=== PATIENT | male | born 1945 | race Caucasian/White ===

== ENCOUNTER 2020-07-28 15:52 | Emergency (ER) | payer OTHER ==
[~2020-07-28] VITALS: Ht 177.8 cm; Wt 79.8 kg
[2020-07-28 16:57] LABS: BASOPHILS ABSOLUTE AUTO 0.03 K/mm3 (0.00-0.23); BASOPHILS PERCENT AUTO 1 % (0-2); EOSINOPHILS PERCENT AUTO 4 % (0-6); Hematocrit 44.7 % (37.0-53.0); Hemoglobin 15.8 g/dL (13.5-17.5); IMMATURE GRAN ABSOLUTE AUTO 0.03 K/mm3 (0.00-0.10); IMMATURE GRAN PERCENT AUTO 1 % (0-1); LYMPHOCYTES ABSOLUTE AUTO 1.04 K/mm3 (0.84-5.20); LYMPHOCYTES PERCENT AUTO 19 % (21-46); MONOCYTES ABSOLUTE AUTO 0.48 K/mm3 (0.16-1.47); MONOCYTES PERCENT AUTO 9 % (4-13); Mean Corpuscular HGB Conc 35.3 g/dL (31.5-36.5); Mean Corpuscular Volume 91 fL (80-100); Mean Platelet Volume 10.3 fL (9.1-12.4); NEUTROPHILS ABSOLUTE AUTO 3.62 K/mm3 (1.96-9.15); NEUTROPHILS PERCENT AUTO 67 % (41-73); Platelet Count 146 K/mm3 (150-400); RDW Coefficient Variation 12.9 % (11.7-14.2); RDW Standard Deviation 41.9 fL (35.1-46.3); Red Blood Cell Count 4.94 M/mm3 (4.30-5.90)
[2020-07-28 17:18] LABS: Alanine Aminotransfer (ALT/SGP 32 U/L (12-78); Albumin, Blood 3.6 g/dL (3.4-5.0); Albumin/Globulin Ratio 1.4 (0.8-1.8); Alk Phos 105 U/L (50-136); Anion Gap 2 mmol/L (6-16); Aspartate Aminotrans (AST/SGOT 24 U/L (12-37); Bilirubin, Total 1.2 mg/dL (0.1-1.0); Blood Urea Nitrogen 16 mg/dL (8-24); Bun/Creatinine Ratio 15.5 (12.0-20.0); CO2, Blood 34 mmol/L (21-32); Calcium, Blood 8.6 mg/dL (8.5-10.1); Chloride, Blood 105 mmol/L (98-108); Creatinine, Blood 1.03 mg/dL (0.60-1.20); Globulin, Blood 2.6 g/dL (2.2-4.0); Glomerular Filtration Rate >60 (60-); Glucose, Blood 86 mg/dL (70-99); Potassium, Blood 3.7 mmol/L (3.5-5.5); Sodium, Blood 141 mmol/L (136-145); Total Protein, Blood 6.2 g/dL (6.4-8.2)
[2020-07-28] MEDS ORDERED: LATA.005SO LEFTEYE (17:19)
[2020-07-28] MEDS ORDERED: CHLO25B PO (17:19)
[2020-07-28] MEDS ORDERED: ATOR20 PO (17:19)
[2020-07-28] MEDS ORDERED: TIMO.25OPS LEFTEYE (17:20)
[2020-07-28] MEDS ORDERED: Flagyl500 MG PO (18:17)
[2020-07-28] MEDS ORDERED: Cipro500 MG PO (18:17)
== END 2020-07-28 18:39 | disposition home or self-care (01) ==
LOC: ER 15:52
PROVIDERS: Physician Assistant
DX: K63.1 Perforation of intestine (nontraumatic) (principal); I10 Essential (primary) hypertension; K21.9 Gastro-esophageal reflux disease without esophagitis; E78.00 Pure hypercholesterolemia, unspecified
CPT/HCPCS: 36415; 80053; 83605; 85025; 87040; 96365; 99284-25; J2543

== ENCOUNTER 2020-08-31 12:59 | Day surgery (SDC) | payer OTHER ==
[~2020-08-31] VITALS: Ht 177.8 cm; Wt 79.3 kg
[~2020-08-31 12:59] MED LIST: ATOR20 PO; CHLO25B PO; Cipro500 MG PO; Flagyl500 MG PO; LATA.005SO LEFTEYE; TIMO.25OPS LEFTEYE
[2020-08-31] MEDS ORDERED: ASPIR 8181 M1 (13:23)
--- NOTE | 2020-08-31 13:42 | NUR ---
08/31/20 1342 Alyx Desai 1 TRY RIGHT UPPER ARM MOVED 2 TRY RIGHT WRIST NO FLASH
== END 2020-08-31 15:44 | disposition home or self-care (01) ==
LOC: ORSCSDS 12:59
PROVIDERS: Surgery
PROC: 0DB78ZX Excision of Stomach, Pylorus, Via Natural or Artificial Opening Endoscopic, Diagnostic (ICD-10-PCS; principal; 2020-08-31 14:30)
PROC: 0DJD8ZZ Inspection of Lower Intestinal Tract, Via Natural or Artificial Opening Endoscopic (ICD-10-PCS; principal; 2020-08-31 14:30)
DX: R10.12 Left upper quadrant pain (principal); K21.9 Gastro-esophageal reflux disease without esophagitis; R13.14 Dysphagia, pharyngoesophageal phase; K29.70 Gastritis, unspecified, without bleeding; Z86.010 Personal history of colon polyps; Z12.11 Encounter for screening for malignant neoplasm of colon; E78.00 Pure hypercholesterolemia, unspecified; I10 Essential (primary) hypertension; R93.89 Abnormal findings on diagnostic imaging of other specified body structures; K44.9 Diaphragmatic hernia without obstruction or gangrene; Z79.899 Other long term (current) drug therapy; Z86.73 Personal history of transient ischemic attack (TIA), and cerebral infarction without residual deficits
CPT/HCPCS: 43239; G0105; 88305; 88342; J2704; J7120

== ENCOUNTER 2021-08-16 16:21 | Emergency (ER) | payer OTHER ==
[~2021-08-16] VITALS: Ht 177.8 cm; Wt 88.5 kg
[~2021-08-16 16:21] MED LIST changes: +ASPIR 8181 M1
== END 2021-08-16 18:44 | disposition home or self-care (01) ==
LOC: ER 16:21
DX: S09.90XA Unspecified injury of head, initial encounter (principal); S16.1XXA Strain of muscle, fascia and tendon at neck level, initial encounter; V53.5XXA Driver of pick-up truck or van injured in collision with car, pick-up truck or van in traffic accident, initial encounter; Z79.899 Other long term (current) drug therapy; Z79.82 Long term (current) use of aspirin; E78.00 Pure hypercholesterolemia, unspecified; K21.9 Gastro-esophageal reflux disease without esophagitis; I10 Essential (primary) hypertension
CPT/HCPCS: 70450; 72125; 99284-25

== ENCOUNTER 2022-09-13 11:24 | Emergency (ER) | payer OTHER ==
[~2022-09-13] VITALS: Ht 177.8 cm; Wt 89.4 kg
[2022-09-13 11:40] VITALS: BP 166/91
== END 2022-09-13 13:32 | disposition home or self-care (01) ==
LOC: ER 11:24
DX: S01.01XA Laceration without foreign body of scalp, initial encounter (principal); I10 Essential (primary) hypertension; E78.00 Pure hypercholesterolemia, unspecified; Z79.82 Long term (current) use of aspirin; Z79.899 Other long term (current) drug therapy; V84.4XXA Person injured while boarding or alighting from special agricultural vehicle, initial encounter
CPT/HCPCS: 12002; 70450; 99284-25